=== PATIENT | female | born 1995 | race Hispanic/Latino ===

== ENCOUNTER 2017-05-21 07:45 | Emergency (ER) | payer MEDICAID, SELFPAY ==
[2017-05-21 09:07] LABS: #Basophils 0.1 thou/uL (0.0-0.2); #Eosinphils 0.1 thou/uL (0.0-0.7); #Monocytes 0.6 thou/uL (0.11-0.59); #Neutrophils 5.9 thou/uL (1.40-6.50); %Basophils 0.8 % (0.0-1.0); %Eosinophils 1.7 % (0.0-10.0); %Lymphocytes 23.4 % (21.0-51.0); %Monocytes 6.3 % (0.0-10.0); %Neutrophils 67.8 % (42.0-75.0); Hemoglobin 14.3 g/dL (12.0-16.0); Mean Corpuscular HGB CONC 33.7 g/dL (32.0-36.0); Mean Corpuscular Hemoglobin 29.4 pg (27.0-31.0); Mean Corpuscular Volume 87.3 fl (81.0-99.0); Mean Platelet Volume 9.3 fL (7.4-10.4); Platelet Count 167 thou/uL (130-400); RBC Distribution Width 13.7 % (11.5-14.5); Red Blood Cell (RBC) Count 4.84 mill/uL (4.20-5.40); White Blood Cell (WBC) Count 8.7 thou/uL (4.8-10.8)
--- NOTE | 2017-05-21 10:17 | ULT ---
PELVIC ULTRASOUND: Date: 05/21/17 COMPARISON: None. HISTORY: patient with vaginal bleeding. TECHNIQUE: Multiplanar Wiggins scale and color Doppler images were obtained in a transabdominal pelvic ultrasound. FINDINGS: There is a gestational sac within the uterus. This sac is slightly irregular in appearance. There angus ears to be a fetus within the irregular gestational sac. No heart tones are able to be detected . Average age of the fetus based off today's examination is 11 weeks/6 days. The following measurements were taken and dates based off these measurements are as follows: Please note that all biometric measurements could not be achieved. HC: 5.41 cm, 12 weeks/0 days FL: 0.63 cm, 12 weeks/0 days IMPRESSION: Intrauterine which should be 11 weeks/6 days. No heart tones are detected, which is c onsistent with demise. POS: PARVIN
[2017-05-21 10:32] LABS: Bilirubin Negative (Negative); Blood, Urine Small (Negative); Clarity CLEAR (Clear); Glucose, Urine (Dipstick) Negative (Negative); Leukocyte Moderate (Negative); Nitrite Negative (Negative); Protein, Urine (Dipstick) Negative (Neg-Trace); Specific Gravity, Urine 1.009 (1.002-1.036); Urobilinogen 0.2 mg/dL (0.2-1.0); pH, Urine 7.5 (5.0-9.0)
[2017-05-21 10:36] LABS: Bacteria/HPF None Seen HPF (None Seen); Hyaline Casts/LPF 0-3 HYALINE CAST LPF (0-3 Hyaline); Pathc Cast-AUWi Flag 0.14 (0-2.49); RBC/HPF 0-3 HPF (0-3); Squamous Epithelial 0-3 HPF (0-3); WBC/HPF 0-3 HPF (0-3)
[2017-05-21] MEDS ORDERED: Misoprostol 200 MCG TAB PO SCH (13:15)
[2017-05-21] MEDS ORDERED: Misoprostol 200 MCG TAB VAG SCH (13:15)
--- NOTE | 2017-05-21 14:36 | CON ---
DATE OF CONSULTATION: 05/21/2017 REFERRING PROVIDER: Dr. Berry. HISTORY OF PRESENT ILLNESS: The patient is a 22-year-old G2, P1 female who presented to the emergenc y room today with an intrauterine at approximately 11 weeks with vaginal bleeding. She has been diagnosed with intrauterine demise. I was asked to come and camp counselor with her about her o ptions. The patient reports that she has been having cramping for the last couple of days and began having bleeding on and off, sometimes spotting and sometimes heavier bleeding. She speaks Italian. She has been getting her care at the Clinic and has an appointment today. [facility] also reports a history of previous x1. The patient had suspected that the baby had pas sed away given her symptoms beginning in the week. PAST MEDICAL HISTORY: Negative. PAST SURGICAL HISTORY: She has had 1 prior . ALLERGIES: No known drug allergies. SOCIAL HISTORY: Denies drug, alcohol or tobacco use. REVIEW OF SYSTEMS: The patient reports cramping with some bleeding. Denies fever, illness, headache , chest pain, shortness of breath, nausea, vomiting, diarrhea, constipation. PHYSICAL EXAMINATION: VITAL SIGNS: Blood pressure is 112/77, pulse of 75, respiratory rate of 20, temperature 97.5. She i s satting 98% on room air. GENERAL: She appears to be emotionally distressed from this news and is tearful upon my entrance; ho wever, she is appropriate and otherwise cooperative and pleasant to interact with. HEENT: Head is normocephalic, atraumatic. LUNGS: Clear to auscultation bilaterally. HEART: Has a regular rate and rhythm. ABDOMEN: Soft. EXTREMITIES: Nontender, nonedematous. IMAGING: Ultrasound shows an intrauterine at about 11 weeks and 6 days with no heart tones detected consistent with demise. ASSESSMENT AND PLAN: The patient is a 22-year-old G2, P1 female with an intrauterine at 11 weeks and 6 days with a diagnosed intrauterine demise. She is beginning to show signs of misc arriage with cramping and bleeding. We have offered to accelerate this natural process with Cytotec 800 mcg to be placed vaginally. We have also counseled her with her other options of expectant manag ement and surgical intervention. The patient has an appointment with Clinic later today. S he has expressed a desire to proceed with Cytotec here prior to discharge home. We have given her co unsel that she should be experiencing increasing cramping and bleeding for a short period of time, ev en severe. We have counseled that if the bleeding becomes severe for more than an hour or she otherw ise is uncomfortable, to return to the emergency room. I have also counseled her not to take any ibu profen or NSAIDs at this time for pain control, but will give her tramadol as we do not want to count eract the effects of the medication we have been providing. Patient has expressed understanding and desires to proceed. Therefore, prior to discharge, the patient will be given 800 mcg Cytotec PV. Th e patient will follow up with her primary OB in the Clinic in the next day or two as the pat ient may need to be redosed or may need to be recounseled to her options.
== END 2017-05-21 13:39 | disposition home or self-care (01) ==
LOC: ERS 07:45
DX: O02.1 Missed abortion (principal)
CPT/HCPCS: 36415; 76856; 81003; 81015; 85025; 86850; 86900; 86901